=== PATIENT | male | born 1965 | race Caucasian/White ===

== ENCOUNTER 2023-09-22 09:21 | Emergency (ER) | payer BC, SELFPAY ==
[2023-09-22 09:27] VITALS: BP 186/115; PULSE 54; RESP 16; TEMP 35.9; O2SAT 99
--- NOTE | 2023-09-22 09:40 | ED.DENTAL ---
HPI - Dental/Oral General Chief complaint: Dental/Oral Stated complaint: tongue Time Seen by Provider: 09/22/23 09:26 History of Present Illness HPI Narrative: This is a 57-year-old male, with history a painful lesion on the right side of his tongue who presents to the emergency department complaining of pain. Patient states he has had a lesion on tongue for several years. During its initial evaluation he was evaluated for cancer which by biopsy was negative. The patient was advised by an ENT to manage his pain with lidocaine. He is visiting the area over the next 2 months and has noticed increased size of the lesion. He rates his pain 6 to 7/10, improved somewhat with ibuprofen and oral lidocaine, though persistent. this is accompanied by right-sided facial pain without weakness, numbness or change/loss of vision/ hearing. Related Data Allergies Allergy/AdvReac Type Severity Reaction Status Date / Time No Known Allergies Allergy Verified 09/22/23 09:24 Review of Systems Review of Systems: CONSTITUTIONAL: Denies fever, chills, or sweats. EYES: Denies visual changes, redness, or discharge. ENT: Right-sided tongue pain, right-sided otalgia Denies rhinorrhea, congestion, sore throat CARDIOVASCULAR: Denies chest pain, palpitations, or edema. RESPIRATORY: Denies cough or dyspnea. GASTROINTESTINAL: Denies abdominal pain, nausea, vomiting, or diarrhea. GENITOURINARY:Denies dysuria or hematuria. SKIN: Denies rash or itching. MUSCULOSKELETAL: Denies back pain, joint pain, or myalgia. NEUROLOGIC: Denies headache, numbness, dizziness, or weakness. PSYCHIATRIC: Denies anxiety or depression. PMFSH Past Medical History Medical History Lesion of tongue Surgical History Surgical History No significant past surgical history Social History Social History Smoking status: Former smoker Alcohol intake: never Substance use: never Exam Narrative: GENERAL: Well-developed, well-nourished, and in no acute distress. HEAD: Normocephalic, atraumatic. EYES: PERRLA and EOMI. ENT: there is a 1/2 x 1 cm clean based ulcerative appearing lesion, with a deeper component extending approximately 3-4 mm to the center of the tongue mass noted on the right side the tongue. there is no noted erythema, induration, bleeding or purulent drainage. There are no other lesions noted on the oral mucosa. Nares clear, no rhinorrhea or epistaxis. Mucous membranes moist. Oropharynx without tonsillar hypertrophy exudate or other lesions. Bilateral TMs pearly boggs nonbulging NECK: Supple. No adenopathy or masses. No carotid bruits or JVD CHEST: Clear to auscultation. No respiratory distress. No wheezes rales or rhonchi HEART: Regular rate and rhythm. No murmur heard. Normal peripheral pulses. SKIN: Warm, dry, no rash. NEURO: Alert and oriented x3. No focal deficit. Moving all 4 limbs spontaneously PSYCH: Normal mood and affect. Course Course Emergency Course: 09:45 - The patient's exam appears consistent with an aphthous ulcer versus viral ulcer. Given his previous history biopsy and ruling out cancer, will treat with oral steroids and antiviral medications. The patient states his pain is controlled with NSAIDs an oral lidocaine. I do not suspect airway compromise or deep space neck infection. Will discharge with recommendation for ENT and primary care follow-up. I discussed the findings and recommendations with the patient. Discussed return and emergency precautions including signs/symptoms of deep space neck infection and airway compromise. The patient voiced understanding and agreement with the plan. All questions answered to his satisfaction. Vital Signs Vital signs: Vital Signs Temperature 96.7 F L 09/22/23 09:27 Pulse Rate 54 L 09/22/23 09:27 Respiratory Rate 16 04/2
[2023-09-22] MEDS: LIDOCAINE HCL 2% VISC SOLN 15 ML UDC PO (09:43)
== END 2023-09-22 10:01 | disposition home or self-care (01) ==
LOC: ANHED 09:46
PROVIDERS: Emergency Provider Preventive Medicine Aerospace Medicine
DX: K12.0 Recurrent oral aphthae (principal)
CPT/HCPCS: 99283